=== PATIENT | male | born 1950 | race Caucasian/White ===

== ENCOUNTER 2022-04-21 06:57 | Emergency (ER) | payer OTHER, MEDICARE ==
[2022-04-21 07:20] VITALS: BP 118/74; PULSE 67
== END 2022-04-21 07:45 | disposition other institution (70) ==
LOC: JP.ED 06:57
DX: R04.0 Epistaxis (principal); Z79.82 Long term (current) use of aspirin
CPT/HCPCS: 30903; 99282; 99283-25

== ENCOUNTER 2024-03-20 14:36 | Emergency (ER) | payer OTHER, MEDICARE ==
[2024-03-20 14:59] VITALS: BP 120/51; PULSE 56
== END 2024-03-20 15:24 | disposition home or self-care (01) ==
LOC: JP.ED 14:36
DX: H53.9 Unspecified visual disturbance (principal); Z79.82 Long term (current) use of aspirin; Z79.899 Other long term (current) drug therapy
CPT/HCPCS: 99283